=== PATIENT | female | born 1965 | race Caucasian/White ===

== ENCOUNTER 2018-06-15 08:17 | Day surgery (SDC) | payer OTHER ==
[~2018-06-15] VITALS: Ht 165.1 cm; Wt 113.9 kg
[~2018-06-15 08:17] MED LIST: AMLO10 PO; CEPH500 PO; CHOL10002 PO; DIGESTIVE PROB1 EACH PO; Estradiol0.5 MG PO; FEXO60 PO; HTN MED; HYDACE5 PO; HYDCHL50 PO; LORA1 PO; MELO7.5 PO; METO100 PO; ONDA4ODT MM; OXYACE5T PO; RANI150 PO; [UNRECOGNIZED DRUG - OTHER] PO
== END 2018-06-15 10:36 | disposition home or self-care (01) ==
LOC: ORSCSDS 08:17
PROVIDERS: Internal Medicine Gastroenterology
PROC: 0DBK8ZX Excision of Ascending Colon, Via Natural or Artificial Opening Endoscopic, Diagnostic (ICD-10-PCS; principal; 2018-06-15 09:30)
DX: R10.11 Right upper quadrant pain (principal); D12.2 Benign neoplasm of ascending colon; K57.30 Diverticulosis of large intestine without perforation or abscess without bleeding; K64.8 Other hemorrhoids; K21.9 Gastro-esophageal reflux disease without esophagitis; F41.8 Other specified anxiety disorders; I10 Essential (primary) hypertension; E78.00 Pure hypercholesterolemia, unspecified; R19.7 Diarrhea, unspecified; M79.7 Fibromyalgia; Z86.010 Personal history of colon polyps; Z87.891 Personal history of nicotine dependence; E66.01 Morbid (severe) obesity due to excess calories; Z68.41 Body mass index [BMI] 40.0-44.9, adult; Z79.899 Other long term (current) drug therapy
CPT/HCPCS: 88305; J7120

== ENCOUNTER → 2019-05-24 | Outpatient (CLI) | payer OTHER | END | disposition home or self-care (01) | LOC: LAB SHORT 17:21 → LAB EV 17:21 | DX: N39.0 Urinary tract infection, site not specified (principal) | CPT/HCPCS: 87077; 87086; 87186 ==

== ENCOUNTER 2023-11-20 06:49 | Day surgery (SDC) | payer OTHER ==
[~2023-11-20] VITALS: Ht 165.1 cm; Wt 111.1 kg
[~2023-11-20 06:49] MED LIST changes: +HYDROCHLOROTH12.5 MG; +LOSA50; +Percocet 5-3251 EACH PO
[2023-11-20] MEDS ORDERED: ASCO500 (07:07)
[2023-11-20] MEDS ORDERED: VITAMIN B121000 MCG (07:07)
[2023-11-20] MEDS ORDERED: VITAMIN D350 MC3 (07:07)
[2023-11-20] MEDS ORDERED: Loratadine10 MG (07:08)
[2023-11-20] MEDS ORDERED: NASACORT10.8 ML (07:08)
[2023-11-20] MEDS ORDERED: Lactated Ringer's 1,000 ML IV ONE ×2 (07:40→08:00)
[2023-11-20] MEDS ORDERED: FentaNYL Citrate 50 MCG/ML 2 ML Injection ONE (07:54)
[2023-11-20] MEDS ORDERED: propofoL 50 ML IV ONE (07:54)
[2023-11-20] MEDS ORDERED: Midazolam HCL 1 MG/ML 5MLVIAL ONE (07:54)
[2023-11-20 09:12] VITALS: BP 112/60
== END 2023-11-20 09:10 | disposition home or self-care (01) ==
LOC: ORSCSDS 06:49 → ORD 09:30 → ORSCSDS 09:45
PROVIDERS: Internal Medicine Gastroenterology
PROC: 0DBK8ZX Excision of Ascending Colon, Via Natural or Artificial Opening Endoscopic, Diagnostic (ICD-10-PCS; principal; 2023-11-20 08:00)
PROC: 0DBL8ZX Excision of Transverse Colon, Via Natural or Artificial Opening Endoscopic, Diagnostic (ICD-10-PCS; principal; 2023-11-20 08:00)
DX: Z12.11 Encounter for screening for malignant neoplasm of colon (principal); D12.2 Benign neoplasm of ascending colon; D12.3 Benign neoplasm of transverse colon; D17.5 Benign lipomatous neoplasm of intra-abdominal organs; K57.30 Diverticulosis of large intestine without perforation or abscess without bleeding; Z86.010 Personal history of colon polyps; M79.7 Fibromyalgia; I10 Essential (primary) hypertension; Z68.41 Body mass index [BMI] 40.0-44.9, adult; F17.210 Nicotine dependence, cigarettes, uncomplicated; Z79.899 Other long term (current) drug therapy
CPT/HCPCS: 88305; J2250; J2704; J3010; J7120